=== PATIENT | male | born 1975 | race Caucasian/White ===

== ENCOUNTER 2019-04-01 13:52 | Day surgery (SDC) ==
[2019-04-01] MEDS ORDERED: KEFZOL 1 GM/D5W 2 GM/100 ML IVPB ONE (14:33)
[2019-04-01] MEDS ORDERED: LR 1,000 ML ONE (14:33)
[2019-04-01] MEDS ORDERED: VERSED ONE (16:19)
[2019-04-01] MEDS ORDERED: FENTANYL ONE (16:20)
[2019-04-01] MEDS ORDERED: DIPRIVAN 1% ONE (16:20)
[2019-04-01] MEDS ORDERED: XYLOCAINE-MPF 2% ONE (16:20)
[2019-04-01] MEDS ORDERED: MARCAINE 0.25% PF ONE (16:36)
[2019-04-01] MEDS ORDERED: ZOFRAN ONE (16:44)
[2019-04-01] MEDS ORDERED: DECADRON ONE (16:44)
[2019-04-01] MEDS: DILAUDID ONE ×4 (18:05→18:16)
[2019-04-01] MEDS ORDERED: VANCOMYCIN IV PER PHARMACY MISC SCH (18:15)
[2019-04-01] MEDS ORDERED: NORCO-7.5 ONE (18:26)
[2019-04-01] MEDS ORDERED: ZOFRAN PO PRN (19:53)
[2019-04-01] MEDS ORDERED: NORCO-5 PO PRN (20:00)
[2019-04-01] MEDS ORDERED: NORCO-7.5 PO PRN (20:00)
[2019-04-01] MEDS: NICODERM PATCH TD SCH (20:43)
[2019-04-01] MEDS: PERIDEX MT SCH (20:43)
[2019-04-01] MEDS: MORPHINE IV PRN (20:49)
[2019-04-01] MEDS: NORCO-10 PO PRN (23:07)
[2019-04-01] MEDS: VANCOMYCIN 2,000 MG in NS 500 ML IV SCH (23:09)
[2019-04-02] MEDS: MORPHINE IV PRN ×3 (01:53→13:55)
[2019-04-02] MEDS: NORCO-10 PO PRN ×3 (04:56→15:56)
--- NOTE | 2019-04-02 05:20 | OPERATIVE NOTE ---
PROCEDURE DATE: 04/01/2019 PREOPERATIVE DIAGNOSIS: Infection left shoulder status post left acromioclavicular joint reconstruction. POSTOPERATIVE DIAGNOSIS: Infection left shoulder status post left acromioclavicular joint reconstruction. PROCEDURE: Irrigation and debridement left shoulder. SURGEON: Alexx Burnham MD. SECOND FLIGHT COMMUNICATIONS SPECIALIST: OLAF Najera, who was necessary for proper positioning and traction. ANESTHESIA: General. INTRAVENOUS FLUIDS: 800 mL lactated Ringer's. ESTIMATED BLOOD LOSS: 20 mL. COMPLICATIONS: None. INDICATION: The patient is a pleasant 43-year-old male who is approximately 5 weeks status post arthroscopic assisted left AC joint reconstruction. Patient has had some drainage from the wound. He did improve somewhat with p.o. antibiotics, however, has continued with drainage. Given patient's findings and continued drainage, recommendation to proceed with irrigation and debridement was offered. Risks and benefits of surgery were explained, including the risks of anesthesia, , bleeding, infection, failure to relieve pain, postop stiffness, nerve injury, blood clots, continued infection and other imponderables. All questions answered. Patient and family wished to proceed with surgery. DETAILS OF OPERATION: The patient was taken to the operating room and placed supine on the operating table. Once adequate anesthesia was obtained, patient was placed in semi-[place]- chair position. The left shoulder was subsequently prepped and draped in usual sterile fashion. The incision was carried down through subcutaneous tissue, obtained a small amount of purulent drainage along the superior aspect. Intraoperative cultures were obtained. The patient did have some indwelling stitches which were removed at the site of the purulence. I did track to the superior aspect of the clavicle. The patient did have a rent in the superior aspect of the fascia overlying the clavicle; however, did not appear to have gross purulence tracking at this site, it was more in the superficial aspect. After debridement had been conducted, copious irrigation performed with 3000 mL of pulse lavage as well as 1 bottle Vashe. After this had been performed, a 2-0 Prolene was used to close the skin. Then, 0.25% Marcaine without epinephrine injected locally. Adaptic, sterile 4x4s, ABD pad, and tape to the left shoulder, followed by envelope sling. All counts were correct. The patient tolerated the procedure well, transferred to the recovery room in stable conditions. cc: Alexx Burnham MD
[2019-04-02] MEDS: NICODERM PATCH TD SCH (08:37)
[2019-04-02] MEDS: PERIDEX MT SCH (08:37)
[2019-04-02] MEDS ORDERED: PRINIVIL PO SCH (09:00)
[2019-04-02] MEDS: VANCOMYCIN 2,000 MG in NS 500 ML IV SCH (09:45)
[2019-04-02 16:11] VITALS: BP 135/76
--- NOTE | 2019-04-02 21:19 | ORTHOPAEDICS PROGRESS NOTE ---
DATE: 04/02/2019 SUBJECTIVE: Mr. Mayer is a 43-year-old male who is status post day 1 irrigation and debridement of the left shoulder. He has had no complaints through the night. OBJECTIVE: Mr. Mayer is resting comfortably in bed at this time. He is sitting up with no complaints. His sling is in place to his left arm. His surgical dressing is still covering his incision and it is clean, dry, and intact. There is no discharge noted on the dressing. He has not had any fever during the night.Vital Signs: Have been a temp of 97.7 degrees, heart rate of 67, respiratory rate of 18, blood pressure 135/76. Extremities: His left upper extremity is in a sling at this time, and he has good classifier tender strength of his left hand. His sensation is intact distally. LABORATORIES: His lab results show a white count of 8.3. His Gram stain was negative. His anaerobic culture showed no anaerobes isolated and his routine culture showed no growth at 24 hours. ASSESSMENT: Infection of the left shoulder, status post irrigation and debridement of this area yesterday by Dr. Burnham. PLAN: Since Mr. Mayer's cultures are now negative, we will discharge him home with an additional week of doxycycline. His sutures will be removed in office when he follows up on 04/14/2019. He will be going home on [place] as needed for pain. He has no need for deep vein thrombosis prophylaxis at this time. He was educated on signs of infection including redness and drainage. He will follow up sooner if these develop. He is stable for discharge home at this time. Dictated by OLAF Najera for Alexx Burnham MD cc: Alexx Burnham MD
== END 2019-04-02 17:00 | disposition home or self-care (01) ==
LOC: OR 13:52 → 4N 13:52 → OR 04-02 17:00
PROVIDERS: ATTEND Orthopaedic Surgery Adult Reconstructive Orthopaedic Surgery